=== PATIENT | female | born 1995 | race Caucasian/White ===

== ENCOUNTER 2019-08-22 10:56 | Observation (INO) | payer MEDICAID ==
[~2019-08-22] VITALS: Ht 165.1 cm; Wt 80.5 kg
[2019-08-22 11:35] VITALS: BP 118/65
--- NOTE | 2019-08-22 11:49 | NUR ---
C/O PRODUCTIVE COUGH, CONGESTION, RINORRHEA, SORE THROAT X 3 DAYS. LUNGS CLEAR BILTERALLY. RR EVEN AND UNLABORED. PT HR 118. PLACED ON PULSE OX. PAIN /10. PT ALERT AND AWAKE. AMBULATORY WITH STEADY GAIT. PT IS ALSO PREGANT BUT HAS NO COMPLAINTS WITH AT THIS TIME. 9, LIVING 3 HIGH RISK PREGANCY DUE TO PREVIOUS HX OF MISCARRIAGES.
--- NOTE | 2019-08-22 11:52 | NUR ---
[facility] JANUARY 2019
[2019-08-22 12:15] VITALS: BP 123/60
--- NOTE | 2019-08-22 12:15 | NUR ---
Patient discharged with v/s stable. Written and verbal after care instructions given and explained REGARDING TOOTH ABSCESS. Patient alert, oriented and verbalized understanding of instructions. All questions addressed prior to discharge. ID band removed. Patient advised to follow up with PMD. Rx of PENICILLIN given. Patient educated on indication of medication including possible reaction and side effects. Opportunity to ask questions provided and answered.
--- NOTE | 2019-08-22 12:18 | NUR ---
PT WHEELCHAIRED TO LABOR AND DELIVERY TO BE MEDICALLY CLEARED Addendum: 08/22/19 at 1225 by [email or web address] TO HAVE STEFAN COMPLETED
== END 2019-08-22 13:35 | disposition home or self-care (01) ==
LOC: MED 10:56 → MLD 12:14 → MED 12:15 → MLD 12:20
PROVIDERS: ADMIT Obstetrics & Gynecology; ATTEND Obstetrics & Gynecology
DX: O98.813 Other maternal infectious and parasitic diseases complicating pregnancy, third trimester (principal); L08.89 Other specified local infections of the skin and subcutaneous tissue; O99.89 Other specified diseases and conditions complicating pregnancy, childbirth and the puerperium; K08.89 Other specified disorders of teeth and supporting structures; O26.893 Other specified pregnancy related conditions, third trimester; R09.81 Nasal congestion; Z87.59 Personal history of other complications of pregnancy, childbirth and the puerperium; Z88.5 Allergy status to narcotic agent; Z3A.28 28 weeks gestation of pregnancy
CPT/HCPCS: 59025; 99283; G0378